=== PATIENT | female | born 1995 | race Caucasian/White ===

== ENCOUNTER 2018-02-06 13:49 | Emergency (ER) | payer BC ==
[~2018-02-06] VITALS: Ht 172.7 cm; Wt 63.5 kg
[2018-02-06] MEDS ORDERED: ZOLOFT50 MG (14:33)
== END 2018-02-06 16:35 | disposition home or self-care (01) ==
LOC: ER 13:49
DX: R50.9 Fever, unspecified (principal); J09.X2 Influenza due to identified novel influenza A virus with other respiratory manifestations